=== PATIENT | female | born 1960 | race Caucasian/White ===

== ENCOUNTER 2022-02-24 14:45 | Emergency (ER) | payer OTHER, SELFPAY ==
[2022-02-24 15:22] VITALS: BP 149/79; PULSE 73; RESP 20; TEMP 36.6; O2SAT 99; BMI 33.8
--- NOTE | 2022-02-24 15:40 | CRLHL7_ITS ---
For Patients: As a result of the Century Cures Act, medical imaging exams and procedure reports are released immediately into your electronic medical record. You may view this report before your referring provider. If you have questions, please contact your health care provider. INDICATION: Cough and shortness of breath. TECHNIQUE: Chest 1 views. COMPARISON: None. FINDINGS: Cardiovasculature and mediastinum: Heart size and vasculature are normal in caliber and appearance. Lungs and pleural spaces: Lungs are clear. No sign of infiltrate or mass. No sign of pleural effusion. No pneumothorax. Bones and soft tissues: No significant findings. IMPRESSION: No acute or significant findings. Dictated by Denys Matthews MD @ 02/24/2022 5:45:44 PM (Electronically Signed)
[2022-02-24 16:52] LABS: PCR FLU A Negative PCR FLU A (Negative); PCR FLU B Negative PCR FLU B (Negative); PCR RSV Negative PCR RSV (Negative)
--- NOTE | 2022-02-24 17:31 | ED.GENADULT ---
HPI - General Adult General Date Seen: 02/24/22 Chief complaint: Cough Stated complaint: Spitting up green stuff and dizzy Time Seen by Provider: 02/24/22 17:03 Source: patient History of Present Illness HPI narrative: Patient is a 61-year-old coming in due to ongoing cough since . She says she has had some diarrhea, fatigue, weakness. She says she is coughing up green chunks, occasionally with blood. She says she was not sure whether not she might have bronchitis or need an antibiotic. She has had a negative COVID test at home. She has felt dizzy at times. She has not felt significantly short of breath and has not had chest pain. She says she has run temperatures in the 100-101 range over the past several days but has not had a fever today. She also says that her ears are bothering her. She has had fullness and ear pain. She also says that she has been having pain in her kidney on and off for the past couple of weeks on the left, and she did not want to make the long drive to her regular clinic in [place] as the roads were snowy, so she thought as long as she was here she would get a UA done as well. She has not been having dysuria, frequency or urgency. She has underlying asthma and has inhalers. She does not currently have prednisone. Related Data Previous Rx's Medication Instructions Recorded prednisone 20 mg tablet 20 mg PO BID #10 tabs 02/24/22 prednisone 20 mg tablet See Rx Instructions .Route 02/24/22 .COMPLEX #18 tabs Allergies Allergy/AdvReac Type Severity Reaction Status Date / Time cats Allergy Uncoded 02/24/22 15:22 Review of Systems Status of ROS: Reports: 10 or more systems reviewed and unremarkable except as noted in History and below [facility] Social History Smoking Status: Never smoker Do you use any of these nicotine containing products: None Second hand tobacco smoke exposure: No How often do you have a drink containing alcohol: monthly or less How many standard drinks containing alcohol do you have on a typical day: 1 or 2 How often do you have six or more drinks on one occasion: Never AUDIT-C Alcohol total score: 1 Non-prescribed substance use: denies use service: No Exam Narrative: Exam Narrative: Vital signs as noted above. In general, an alert, well-appearing patient. Head: Normocephalic, atraumatic. Eyes: Pupils are equal reactive. Extraocular movements are full. Conjunctivae are normal. ENT: Mucous membranes are moist. Throat is normal. Neck: Supple without lymphadenopathy. Heart: Regular rate and rhythm. No murmur or rub. Lungs: Clear bilaterally. No increased work of breathing, crackles or wheezes. Abdomen: Soft and nontender. No organomegaly. Extremities: Well perfused. No edema. No calf tenderness. Pulses intact. Neurologic: Patient is alert and oriented to person and place. Speech is fluent. Face is symmetric. Moves all extremities equally. Affect: Normal. Skin: Warm and dry. Well perfused. Const: Vital Signs, click to edit/add: Vital Signs - 24 hr 02/24/22 15:22 02/24/22 19:27 Temperature 97.8 F 97.8 F Pulse Rate [Pulse Oximeter] 73 73 Respiratory Rate 20 20 Blood Pressure [Ri ght Forearm] 149/79 H 149/79 H Pulse Oximetry 99 Oxygen Delivery Me thod Room Air Documenting provider has reviewed patient's vital signs: yes Course Course Hospital Course: Overall, I do not find anything on exam to suggest significant illness. Lungs are clear, without any findings to suggest pneumonia or respiratory distress. I did do a chest x-ray which by my review does not show any evidence of pneumonia, pneumothorax, pulmonary edema, pleural effusion or other significant abnormality. Final radiology report is pending at this time. I have added on a urinalysis at her request. Her strep, COVID, RSV, influenza are all negative. She is afebrile here, O2 sats are normal. Final radiology report is negative for her chest x-ray. Her labs are all reassuring, white blood cell count is 6.7, normal diff. Metabolic panel is normal, creatinine is 0.7. LFTs are normal, CRP is normal. Urinalysis showed 0-2 red cells and 2-5 white cells. I have reassured her that her lab work is all reassuring as well, would recommend treatment for bronchitis by adding some prednisone. She says that she prefers to do a taper rather than of 5 day course because with a 5 day course she gets all sorts of side effects. She remains concerned about the ?squeezing sensation that she is having in her kidney, and I have recommended that she follow up with her primary doctor regarding that. She does feel better knowing that her kidney function is normal and the urinalysis is unremarkable. Follow-up with primary care for recheck in the next week if not improving. Vital Signs Vital signs: Initial Vital Signs Temperature 97.8 F 02/24/22 15:22 Temperature Source Temporal Artery Scan 02/24/22 15:22 Pulse Rate 73 02/24/22 15:22 Pulse Rhythm 02/24/22 15:22 Respiratory Rate 20 02/24/22 15:22 Blood Pressure 149/79 H 02/24/22 15:22 Blood Pressure Mean 102 02/24/22 15:22 Pulse Oximetry 99 02/24/22 15:22 Oxygen Delivery Method 02/24/22 15:22 Vital Signs Temperature 97.8 F 02/24/22 15:22 Pulse Rate 73 02/24/22 15:22 Respiratory Rate 20 02/24/22 15:22 Blood Pressure 149/79 H 02/24/22 15:22 Pulse Oximetry 99 02/24/22 15:22 Oxygen Delivery Method 02/24/22 15:22 Temperature 97.8 F 02/24/22 19:27 Pulse Rate 73 02/24/22 19:27 Respiratory Rate 20 02/24/22 19:27 Blood Pressure 149/79 H 02/24/22 19:27 Pulse Oximetry 99 02/24/22 15:22 Oxygen Delivery Method 02/24/22 15:22 Medical Decision Making Lab Data Labs: Lab Results 02/24/22 02/24/22 02/24/22 Range/Units 15:21 15:30 17:40 WBC (4.50-11.00) K/uL RBC (4.00-5.20) m/uL Hgb (12.0-16.0) gm/dL Hct (33.0-51.0) % MCV (80-100) fL MCH (26-34) pg MCHC (32-36) gm/dL RDW Coeff of Gilberto (11.5-15.5) % Plt Count (140-440) K/uL Neut % (Auto) (42.0-72.0) % Lymph % (Auto) (20-44) % [place] % (Auto) (0.0-11.0) % Eos % (Auto) (0.0-7.0) % Baso % (Auto) (0.0-3.0) % Neut # (Auto) (1.7-7.0) K/uL Lymph # (Auto) (0.90-2.90) K/uL [place] # (Auto) (0.00-0.90) K/UL Eos # (Auto) (0.00-0.50) K/uL Baso # (Auto) (0.00-0.30) K/uL Sodium (135-149) mmol/L Potassium (3.6-5.1) mmol/L Chloride (96-114) mmol/L Carbon Dioxide (20-32) mmol/L BUN (7-30) mg/dL Creatinine (0.5-1.5) mg/dL Estimated Creat Clear Estimated GFR ml/min Glucose (60-115) mg/dL Lactate (0.5-1.9) mmol/L Calcium (8.4-10.6) mg/dL Total Bilirubin (0.1-1.5) mg/dL Direct Bilirubin (0.0-0.5) mg/dL AST (12-35) U/L ALT (4-35) U/L Alkaline Phosphatase (40-150) U/L C-Reactive Protein (0.5-1.0) mg/dL Total Protein (6.0-8.3) g/dL Albumin (3.3-5.0) g/dL Urine Color Yellow (Yellow) Urine Appearance Clear (Clear) Urine pH 5.5 (5.0-8.5) Ur Specific [place] 1.025 (1.000-1.030) Urine Protein Negative (Negative) Urine Glucose (UA) Negative (Negative) Urine Ketones Negative (Negative) Urine Blood Negative (Negative) Urine Nitrite Negative (Negative) Urine Bilirubin Negative (Negative) Urine Urobilinogen 0.2 (0.2-1.0) Ur Leukocyte Esterase Trace A (Negative) Urine RBC 0-2 (0-2) Urine WBC 2-5 (0-5) Ur Squamous Epith Cells None (None-Few) Urine Bacteria Few A (None) SARS-CoV-2 (PCR) Negative SARS-CoV-2 (Negative) Influenza Type A (PCR) Negative PCR FLU A (Negative) Influenza Type B (PCR) Negative PCR FLU B (Negative) RSV (PCR) Negative PCR RSV (Negative) Group A Strep DNA NOT DETECTED (Not Detectd) 02/24/22 02/24/22 02/24/22 Range/Units 17:52 17:52 17:52 WBC 6.71 (4.50-11.00) K/uL RBC 4.77 (4.00-5.20) m/uL Hgb 13.6 (12.0-16.0) gm/dL Hct 41.0 (33.0-51.0) % MCV 86 (80-100) fL MCH 29 (26-34) pg MCHC 33 (32-36) gm/dL RDW Coeff of Gilberto 12.6 (11.5-15.5) % Plt Count 200 (140-440) K/uL Neut % (Auto) 61.4 (42.0-72.0) % Lymph % (Auto) 29.5 (20-44) % [place] % (Auto) 6.4 (0.0-11.0) % Eos % (Auto) 2.2 (0.0-7.0) % Baso % (Auto) 0.4 (0.0-3.0) % Neut # (Auto) 4.11 (1.7-7.0) K/uL Lymph # (Auto) 1.98 (0.90-2.90) K/uL [place] # (Auto) 0.40 (0.00-0.90) K/UL Eos # (Auto) 0.15 (0.00-0.50) K/uL Baso # (Auto) 0.03 (0.00-0.30) K/uL Sodium 141 (135-149) mmol/L Potassium 4.3 (3.6-5.1) mmol/L Chloride 109 (96-114) mmol/L Carbon Dioxide 26 (20-32) mmol/L BUN 12 (7-30) mg/dL Creatinine 0.7 (0.5-1.5) mg/dL Estimated Creat Clear 53.16 Estimated GFR 98 ml/min Glucose 89 (60-115) mg/dL Lactate 0.8 (0.5-1.9) mmol/L Calcium 9.0 (8.4-10.6) mg/dL Total Bilirubin 0.5 (0.1-1.5) mg/dL Direct Bilirubin 0.2 (0.0-0.5) mg/dL AST 23 (12-35) U/L ALT 17 (4-35) U/L Alkaline Phosphatase 106 (40-150) U/L C-Reactive Protein 0.9 (0.5-1.0) mg/dL Total Protein 7.0 (6.0-8.3) g/dL Albumin 4.3 (3.3-5.0) g/dL Urine Color (Yellow) Urine Appearance (Clear) Urine pH (5.0-8.5) Ur Specific [place] (1.000-1.030) Urine Protein (Negative) Urine Glucose (UA) (Negative) Urine Ketones (Negative) Urine Blood (Negative) Urine Nitrite (Negative) Urine Bilirubin (Negative) Urine Urobilinogen (0.2-1.0) Ur Leukocyte Esterase (Negative) Urine RBC (0-2) Urine WBC (0-5) Ur Squamous Epith Cells (None-Few) Urine Bacteria (None) SARS-CoV-2 (PCR) (Negative) Influenza Type A (PCR) (Negative) Influenza Type B (PCR) (Negative) RSV (PCR) (Negative) Group A Strep DNA (Not Detectd) Discharge Plan Discharge Clinical Impression: Bronchitis Patient Disposition: Home, Self-Care Condition: Stable Instructions: Acute Bronchitis (ED) Additional Instructions: Prednisone as prescribed. Urinalysis looks normal. Your lab work is all reassuring, I do not see any evidence of a serious bacterial infection. Continue with your inhalers. Follow up with you primary doctor if you are not improving over the next week or so. Prescriptions: New prednisone 20 mg tablet 20 mg PO BID Qty: 10 0RF prednisone 20 mg tablet See Rx Instructions .ROUTE .COMPLEX Qty: 18 0RF Rx Instructions: Three tablets daily for 3 days then 2 tablets daily for 3 days then 1 tablet daily for 3 days Stand Alone Forms: [employer] Info Instructions
[2022-02-24 17:54] LABS: Appearance Urine Clear (Clear); Bilirubin Urine Negative (Negative); Blood Urine Negative (Negative); Color Urine Yellow (Yellow); Glucose Urine Negative (Negative); Ketones Urine Negative (Negative); Leukocyte Esterase Urine Trace (Negative); Nitrite Urine Negative (Negative); Protein Urine Negative (Negative); Specific Gravity Urine 1.025 (1.000-1.030); Urobilinogen Urine 0.2 (0.2-1.0); pH Urine 5.5 (5.0-8.5)
[2022-02-24 17:59] LABS: Basophils Absolute Auto 0.03 K/uL (0.00-0.30); Basophils Percent Auto 0.4 % (0.0-3.0); Eosinophils Absolute Auto 0.15 K/uL (0.00-0.50); Eosinophils Percent Auto 2.2 % (0.0-7.0); Hemoglobin* 13.6 gm/dL (12.0-16.0); Immature Granulocytes Abs Auto 0.01 K/uL (0.00-0.30); Immature Granulocytes Pct Auto 0.1 %; Lactate* 0.8 mmol/L (0.5-1.9); Lymphocytes Absolute Auto 1.98 K/uL (0.90-2.90); Lymphocytes Percent Auto 29.5 % (20-44); Mean Corpuscular HGB Conc 33 gm/dL (32-36); Mean Corpuscular Hemoglobin 29 pg (26-34); Mean Corpuscular Volume 86 fL (80-100); Monocytes Percent Auto 6.4 % (0.0-11.0); Neutrophils Absolute Auto 4.11 K/uL (1.7-7.0); Neutrophils Percent Auto 61.4 % (42.0-72.0); Platelet Count* 200 K/uL (140-440); RDW Coefficient of Variation % 12.6 % (11.5-15.5); Red Blood Count 4.77 m/uL (4.00-5.20); Slide Review Reflex No; White Blood Count* 6.71 K/uL (4.50-11.00)
[2022-02-24 18:19] LABS: Albumin* 4.3 g/dL (3.3-5.0); Chloride* 109 mmol/L (96-114); Sodium* 141 mmol/L (135-149)
[2022-02-24 18:20] LABS: Potassium* 4.3 mmol/L (3.6-5.1)
[2022-02-24 18:21] LABS: Creatinine* 0.7 mg/dL (0.5-1.5); Est. Creatinine Clearance* 53.16; Estimated Glomerular Filt Rate 98 ml/min
[2022-02-24 18:22] LABS: Alanine Aminotransferase* 17 U/L (4-35); Alkaline Phosphatase* 106 U/L (40-150); Aspartate Amino Transferase* 23 U/L (12-35); Bilirubin Direct* 0.2 mg/dL (0.0-0.5); Bilirubin Total* 0.5 mg/dL (0.1-1.5); Blood Urea Nitrogen* 12 mg/dL (7-30); Carbon Dioxide* 26 mmol/L (20-32); Glucose* 89 mg/dL (60-115)
[2022-02-24 18:25] LABS: C Reactive Protein* 0.9 mg/dL (0.5-1.0)
[2022-02-24 18:53] LABS: Bacteria Urine Few; RBC Urine 0-2 (0-2)
[2022-02-24 19:01] LABS: SARS PCR* Negative SARS-CoV-2 (Negative)
[2022-02-24 19:15] LABS: Strep A DNA Probe* NOT DETECTED (Not Detectd)
[2022-02-24 19:27] VITALS: BP 149/79; PULSE 73; RESP 20; TEMP 36.6
== END 2022-02-24 19:27 | disposition home or self-care (01) ==
PROVIDERS: Emergency Provider Emergency Medicine
DX: J40 Bronchitis, not specified as acute or chronic (principal)
CPT/HCPCS: 36415; 71045; 80048; 80076; 81001; 83605; 85025; 86140; 87086; 87502; 87634; 87635; 87651; 99283; 99284

== ENCOUNTER 2023-11-14 16:11 | Emergency (ER) | payer OTHER, SELFPAY ==
[2023-11-14 16:28] VITALS: BP 179/99; PULSE 95; RESP 18; TEMP 37.4; O2SAT 97; BMI 31.1
--- NOTE | 2023-11-14 16:37 | CRLHL7_ITS ---
For Patients: As a result of the Cures Act, medical imaging exams and procedure reports are released immediately into your electronic medical record. You may view this report before your referring provider. If you have questions, please contact your health care provider. INDICATION: : COUGH, COVID COMPARISON: Chest radiograph on February 24, 2022 TECHNIQUE: One view(s) of the chest FINDINGS: The cardiomediastinal silhouette and pulmonary vasculature are unremarkable. There is no focal airspace consolidation, pleural effusion, or pneumothorax. No displaced fractures. IMPRESSION: No acute cardiopulmonary process. Dictated by Milton Granda MD @ 11/14/2023 6:16:37 PM (Electronically Signed)
--- NOTE | 2023-11-14 17:17 | ED_ITS ---
HPI - General Adult General Date Seen: 11/14/23 Chief complaint: Cough Stated complaint: COVID+ Time Seen by Provider: 11/14/23 16:31 Source: patient and RN notes reviewed Mode of arrival: ambulatory Limitations: no limitations History of Present Illness HPI narrative: Patient is a 62-year-old woman who notes underlying asthma, mild intermittent, COVID positive as of a couple of days ago with ongoing cough and congestion and now right ear pain. She says at night she coughs up green phlegm. She is using her inhaler just at night. She has not had significant shortness of breath otherwise. She says she called her doctor down at [place] and they said to go to her nearest ER to be checked out. She does not smoke or drink. No other substance use. No other significant medical history. Related Data Previous Rx's ?Medication ?Instructions ?Recorded prednisone 20 mg tablet 20 mg PO BID #10 tabs 02/24/22 prednisone 20 mg tablet See Rx Instructions .Route 02/24/22 .COMPLEX #18 tabs amoxicillin 875 mg tablet 875 mg PO BID #20 tabs 11/14/23 prednisone 20 mg tablet 20 mg PO BID #10 tabs 11/14/23 Allergies Allergy/AdvReac Type Severity Reaction Status Date / Time cats Allergy Uncoded 02/24/22 15:22 Review of Systems Status of ROS: Reports: 6 or more systems reviewed and unremarkable except as noted in History and below [facility] Social History Smoking Status: Never smoker Do you use any of these nicotine containing products: None Second hand tobacco smoke exposure: No How often do you have a drink containing alcohol: monthly or less How many standard drinks containing alcohol do you have on a typical day: 1 or 2 How often do you have six or more drinks on one occasion: Never AUDIT-C Alcohol total score: 1 Non-prescribed substance use: denies use service: No Exam Narrative: Exam Narrative: Vital signs as noted above. In general, an alert, well-appearing patient. Breathing easily. Head: Normocephalic, atraumatic. Eyes: Pupils are equal reactive. Extraocular movements are full. Conjunctivae are normal. Left TM is normal. Right is erythematous and dull on the upper 2/3. ENT: Mucous membranes are moist. Throat is normal. Neck: Supple without lymphadenopathy. Heart: Regular rate and rhythm. No murmur or rub. Lungs: Clear bilaterally. No increased work of breathing, crackles or wheezes. Abdomen: Soft and nontender. No organomegaly. Extremities: Well perfused. No edema. No calf tenderness. Pulses intact. Neurologic: Patient is alert and oriented to person and place. Speech is fluent. Face is symmetric. Moves all extremities equally. Affect: Normal. Skin: Warm and dry. Well perfused. Const: Vital Signs, click to edit/add: Vital Signs - 24 hr 11/14/23 16:28 Temperature 99.3 F Pulse Rate [Right Pulse Oximeter] 95 Respiratory Rate 18 Blood Pressure [17 ] 179/99 H Pulse Oximetry 97 Oxygen Delivery Me thod Room Air Documenting provider has reviewed patient's vital signs: yes Course Course ED Course: Discussed with her that she does have evidence of an ear infection in the right ear. Discussed that this is likely viral, would recommend pain control with ibuprofen or Tylenol for the next day or 2, if not improving or if she feels she is getting significantly worse over the next 24 hours, I did prescribe amoxicillin for her. I do not hear significant bronchospasm. Her O2 sats are normal. I did do a chest x-ray and by my review this is negative for infiltrate. Waiting on final radiology review. Would recommend continued use of nebs as needed, and I prescribed prednisone for her as well. Return any time for significant worsening respiratory symptoms or other new concerns. See primary doctor if not improving over the next 7-10 days. Final radiology read as follows:Patient: MARJORIE OSULLIVAN Facility: [facility] Site . Site : [id number] Study: XRay-Chest PORTABLE-11/14/2023 5:14:31 PM Ordering Physician: Lilly Bojorquez Final Report: INDICATION: : COUGH, COVID COMPARISON: Chest radiograph on February 24, 2022 TECHNIQUE: One view(s) of the chest FINDINGS: The cardiomediastinal silhouette and pulmonary vasculature are unremarkable. There is no focal airspace consolidation, pleural effusion, or pneumothorax. No displaced fractures. IMPRESSION: No acute cardiopulmonary process. Dictated by Milton Granda MD @ 11/14/2023 6:16:37 PM Plan as above. Vital Signs Vital signs: Initial Vital Signs Temperature 99.3 F 11/14/23 16:28 Temperature Source Temporal Artery Scan 11/14/23 16:28 Pulse Rate 95 11/14/23 16:28 Respiratory Rate 18 11/14/23 16:28 Blood Pressure 179/99 H 11/14/23 16:28 Blood Pressure Mean 125 H 11/14/23 16:28 Blood Pressure Position Sitting 11/14/23 16:28 Pulse Oximetry 97 11/14/23 16:28 Oxygen Delivery Method Room Air 11/14/23 16:28 Vital Signs Temperature 99.3 F 11/14/23 16:28 Pulse Rate 95 11/14/23 16:28 Respiratory Rate 18 11/14/23 16:28 Blood Pressure 179/99 H 11/14/23 16:28 Pulse Oximetry 97 11/14/23 16:28 Oxygen Delivery Method Room Air 11/14/23 16:28 Temperature 99.3 F 11/14/23 16:28 Pulse Rate 95 11/14/23 16:28 Respiratory Rate 18 11/14/23 16:28 Blood Pressure 179/99 H 11/14/23 16:28 Pulse Oximetry 97 11/14/23 16:28 Oxygen Delivery Method Room Air 11/14/23 16:28 Discharge Plan Discharge Clinical Impression: COVID-19, Otitis media, right, Asthma Patient Disposition: Home, Self-Care Condition: Stable Instructions: Ear Infection (ED) Additional Instructions: Your chest x-ray is normal today, there is no evidence of pneumonia on x-ray or exam. You do have an infection in your right ear, most likely this is viral, I would recommend giving this a day or 2 of just treatment with ibuprofen and/or Tylenol for pain. I did send a prescription for you for amoxicillin if you are not getting better or are getting worse over the next couple days. I have also prescribed prednisone for you to take. You can continue to use your inhalers at home as needed. For significant worsening respiratory symptoms or other new concerns, return to the ER at any time. See your primary doctor as needed for persistent problems. Prescriptions: New prednisone 20 mg tablet 20 mg PO BID Qty: 10 0RF amoxicillin 875 mg tablet 875 mg PO BID Qty: 20 0RF No Action prednisone 20 mg tablet 20 mg PO BID Qty: 10 0RF prednisone 20 mg tablet See Rx Instructions .ROUTE .COMPLEX Qty: 18 0RF Rx Instructions: Three tablets daily for 3 days then 2 tablets daily for 3 days then 1 tablet daily for 3 days Follow Up/Referrals: Provider,Not a Local [Primary Care Provider] - Stand Alone Forms: [employer] Info Instructions
--- OUTSIDE RECORDS SUMMARY | 2023-11-14 17:41 | XMS_ITS | Encounter Summary ---
Author Organization [facility] Address [address] [place] [id number] Care Team Providers Care Edge Cutting Machine Operator Name Role Phone Silva Silva APRN, C.N.P., D.N.P. Primary Ca re Provider Reason for Referral * Outpatient (Routine) - Authorized Specialty Diagnoses / Procedures Referred By Zena t Referred To Contact Diagnoses Obesity Body Mass Index 30-39.9 Adult Silva Silva APRN, C.N.P., D.N.P. [address] [place] [address] [facility] Referral ID Status Reason Start Date Expiration Date V isits Requested Visits Authorized [id number] Authorized 10/05/2023 04/05/2025 1 1 * Outpatient (Routine) - Authorized Specialty Diagnoses / Procedures Referred By Zena bedolla Referred To Contact [facility] Diagnoses Obesity Body Mass Index 30-39.9 Adult Silva Silva APRN C.N.P., D.N.P. [address] [place] [address] [facility] Region Referral ID Status Reason Start Date Expiration Date V isits Requested Visits Authorized [id number] Authorized 10/05/2023 04/05/2025 1 1 * Medication Prior Authorization - Closed Specialty Diagnoses / Procedures Referred By Zena t Referred To Contact Silva Silva APRN, C.N.PZee, D.N.P. [address] [place] [address] Referral ID Status Reason Start Date Expiration Date Visits Re quested Visits Authorized [id number] Closed 1 1 Reason for Visit * Reason Comments Med Management Wegovy and weight lo ss. No side effects Encounter Details Date Type Department Care Team (Late st Contact Info) Description 10/05/2023 8:00 AM CDT Telemedicine Department of Internal Medicine in [place], [place] [address] [place] [address] Silva Silva APRN, C.N.PZee, D.N.P. [address] [place] [phone] Obesity Body Mass Index 30-39.9 Adult (Primary Dx); Surgery Bariatric Status Post; Depression Major Recurrent Partial Remission (HCC); Impaired Fasting Glucose; Deficiency Vitamin D; Hypercholesterolemia Discharge Disposition: Home or Self Care Social History Tobacco Use Types Packs/Day Years Used Date Smoking Tobacco: Never Passive Smoke Exposure: Never Smokeless Tobacco: Never Tobacco Cessation:Counseling Given: Not Answered Alcohol Use Standard Drinks/Week Comments Yes 0 (1 standard drink = 0.6 oz pur e alcohol) rare [facility] Utilities Answer Date Recorded In the past 12 months has e electric, gas, oil, or water company threatened to shut off services in your home? No 06/06/2023 Humiliation, Afraid, Rape, and Kick questionnair e Answer Date Recorded Within the last year, have y ou been afraid of your partner or ex-partner? No 12/14/2021 Within the last year, have y ou been humiliated or emotionally abused in other ways by your partner or ex-partner? No Within the last year, have y ou been kicked, hit, slapped, or otherwise physically hurt by your partner or ex-partner? No 12/14/2021 Within the last year, have y ou been raped or forced to have any kind of sexual activity by your partner or ex-partner? No 12/14/2021 Social Connection and Isolat ion Panel [NHANES] Answer Date Recorded In a typical week, how many times do you talk on the phone with family, friends, or neighbors? More than three times a week 12/14/2021 How often do you get togethe r with friends or relatives? Once a week 12/14/2021 How often do you attend [facility] or synagogue services? Patient declined 12/14/2021 Do you belong to any clubs o r organizations such as sabianism groups, unions, fraternal or athletic groups, or school groups? Yes 12/14/2021 How often do you attend meet ings of the clubs or organizations you belong to? More than 4 times per year 12/14/2021 Are you , , di vorced, , never , or living with a partner? 12/14/2021 AUDIT-C Answer Date Recorded Q1: How often do you have a drink containing alcohol? Monthly or less 12/14/2021 Q2: How many drinks containi ng alcohol do you have on a typical day when you are drinking? Patient does not drink Q3: How often do you have si x or more drinks on one occasion? Never 12/14/2021 Overall Financial Resource Strain (CARDIA) Answe r Date Recorded How hard is it for you to pa y for the very basics like food, housing, medical care, and heating? Not very hard 12/14/2021 PHQ-2 Answer Date Recorded PHQ-2 Score 0 06/08/2023 [facility] of Occupat ional Health - Occupational Stress Questionnaire Answer Date Recorded Do you feel stress - tense, restless, nervous, or anxious, or unable to sleep at night because your mind is troubled all the time - these days? Only a little 12/14/2021 Exercise Vital Sign Answer Date Recorde d On average, how many days pe r week do you engage in moderate to strenuous exercise (like a brisk walk)? 4 days 06/06/2023 On average, how many minutes do you engage in exercise at this level? 50 min 06/06/2023 Hunger Vital Sign Answer Date Recorded Within the past 12 months, y ou worried that your food would run out before you got the money to buy more. Never true 06/06/19 Within the past 12 months, t he food you bought just didn't last and you didn't have money to get more. Never true 06/06/2023 PRAPARE - Transportation Answer Date Re corded In the past 12 months, has l ack of transportation kept you from medical appointments or from getting medications? No 05/20 In the past 12 months, has l ack of transportation kept you from meetings, work, or from getting things needed for daily living? No 06/06/2023 Nutrition Answer Date Recorded On average, how many serving s of fruits and vegetables do you eat per day (serving size is equal to 1 cup or approximately the size of a tennis ball)? 3-5 06/06/2023 Dental Answer Date Recorded Dental: Regular Dentist Yes 06/06/19 Employment Answer Date Recorded Employment status Retired 06/06/2023 Housing Stability Answer Date Recorded What is your living situation today? I have a [facility] place to live 06/06/2023 Education Answer Date Recorded What is the highest level of school you have completed or the highest degree you have received? Associate degree: occupational, technical, or vocational program 12/05/2021 Sex and Gender Information Value Date Recorded Sex Assigned at Female 06/06/2023 3:51 PM CDT Gender Identity Female 06/06/2023 3:51 PM CDT Sexual Orientation Straight 06/06/2023 3: 51 PM CDT documented as of this encounter Last Filed Vital Signs Vital Sign Reading Time Taken Comments Blood Pressure - - Pulse - - Temperature - - Respiratory Rate - - Oxygen Saturation - - Inhaled Oxygen Concentration - - Weight 88.5 kg (195 lb) 10/05/2023 7:59 AM CDT Height - - Body Mass Index 33.29 06/08/2023 10:09 AM CDT documented in this encounter Progress Notes * Silva Silva APRN, C.N.P., D.N.P. - 10/05/2023 8:00 AM CDT SUBJECTIVE CHIEF COMPLAINT/REASON FOR VISIT Med Management (Wegovy and weight loss. No side effects). HISTORY OF PRESENT ILLNESS Modesta is a very pleasant 62 y.o. female who presents for evaluation of Med Management (Wegovy and weight loss. No side effects). This visit was conducted via video Obesity BMI: Body mass index is 33.29 kg/m??. Weight changes: 195 Starting weight: 218 Diet: sandwich for lunch, Trying to watch carbs. Eating smaller portions. Working on eating more protein. Snacking on high protein snacks. Eating more small frequent meals. Exercise: walking regularly. Barriers to weight loss: None at this time Treatments tried: Wegovy increase to 1 mg on some 08/24/2023 Side effects: None Candidiasis: reports this is resolved Nystatin: using daily. Helping Other treatments: None Depression/anxiety Medications: Vraylar. Doing really well wondering if she needs this medication anymore SOCIAL HISTORY Denies tobacco use. No concern for excessive alcohol use. Lives independently ALLERGIES/CONTRAINDICATIONS Allergies Allergen Reactions Km Inhibitors Other (see comments) Acetaminophen Other (see comments) Cat Dander Itching Cigarette Smoke Other (see comments) Dog Dander Other (see comments) House Dust Other (see comments) Latex Shortness of breath (Reselect Reaction) Mold Other (see comments) Oxycodone Other (see comments) Pollen Extracts Other (see comments) REVIEW OF SYSTEMS REVIEW OF SYSTEMS Pertinent positives as per HPI. Otherwise, comprehensive review of systems performed and negative. OBJECTIVE VITAL SIGNS Wt 88.5 kg BMI 33.29 kg/m?? PHYSICAL EXAMINATION Constitutional Appearance: Normal appearance. HENT Head: Normocephalic and atraumatic. Pulmonary Effort: Pulmonary effort is normal. Neurological Mental Status: She is alert and oriented to person, place, and time. Mental status is at baseline. Psychiatric Mood and Affect: Mood normal. Speech: Speech normal. Behavior: Behavior normal. Thought Content: Thought content normal. Cognition and Memory: Cognition normal. ASSESSMENT / PLAN #1 Obesity Body Mass Index 30-39.9 Adult #2 Surgery Bariatric Status Post Reports ongoing weight loss with Wegovy which she is tolerating well without any side effects. Continues to lose weight of the 1 mg dose so I did recommend we continue with this. Plan to follow up in3 months. She will let me know sooner if weight plateaus and she would like to try increasing her dose to 1.7 mg. Plan to update labs including bariatric labs in 3 months. - [facility] office visit (clinic); Future; Expected date: 01/05/2024 - Primary Care nurse visit (clinic) - [facility]; BP check, Weight check (adult); BP check only (HISTORICAL ARCHEOLOGIST); Future; Expected date: 10/05/2023 - semaglutide (Wegovy) 1 mg/0.5 mL pen injector injection; Inject 1 mg under the skin once a week.,Starting Sun10/05/2023, Normal - Comprehensive Metabolic Panel; Future; Expected date: 01/05/2024 - CBC with Differential, Blood; Future; Expected date: 01/05/2024 - Vitamin B12 Assay; Future; Expected date: 01/05/2024 #3 Depression Major Recurrent Partial Remission (HCC) She feels her mood has been very good over the last 6-12 months and she is wondering if she still needs to be on current dose of Vraylar as she has been doing very well. Not currently following with Psychiatry. I have suggested we try reducing her dose to 1.5 mg and see how she does with this. If she has any recurrent symptoms of depression or anxiety she will let me know and she will increase her dose back up to the 3 mg. Recommended continuing with the 1.5 mg dose for at least the next 3 months to see how she does with this. - cariprazine (Vraylar) 1.5 mg capsule; Take 1 capsule (1.5 mg total) by mouth daily., Starting Sun10/05/2023, Normal #4 Impaired Fasting Glucose A1c 4.6 in July of 2022. Has been over a year since last checked. Plan to update again with next set of labs. - Hemoglobin A1c; Future; Expected date: 01/05/2024 #5 Deficiency Vitamin D History of vitamin-D deficiency on supplementation. Plan to update level with next set of labs. - Vitamin D, Immunoassay, Total, Serum; Future; Expected date: 01/05/2024 #6 Hypercholesterolemia Maintained on atorvastatin and tolerating well. Plan to update lipid panel with next set of labs. - Lipid Panel; Future; Expected date: 01/05/2024 Recommended Modesta follow up in 3 months. Follow up sooner for any new or worsening symptoms. Modesta verbalized understanding of the plan of care and was in agreement. All questions were answered today. Total time spent on visit: 21 minutes documented in this encounter Plan of Treatment Upcoming Encounters Date Type Department Care Team (Late st Contact Info) Description 01/07/2024 10:20 AM WHEEL BUFFER Appointment Department of Laboratory Medicine in [address] [phone] Silva Silva APRN, C.N.P., D.N.P. [address] [place] [phone] 01/07/2024 3:00 PM WHEEL BUFFER Telemedicine Department of Internal Medicine in [address] [phone] Silva Silva APRN, C.N.P., D.N.P. [address] [place] [phone] Scheduled Orders Name Type Priority Associated Diagnoses Orde r Schedule Comprehensive Metabolic Panel Lab Routine Surgery Bariatric Status Post Expected: 01/05/2024, Expires: 01/04/2025 CBC with Differential, Blood Lab Routine Surgery Bariatric Status Post Expected: 01/05/2024, Expires: 01/04/2025 Vitamin B12 Assay Lab Routine Surgery Bariatric Status Post Expected: 01/05/2024, Expires: 01/04/2025 Vitamin D, Immunoassay, Total, Serum Lab Routine Deficiency Vitamin D Expected: 01/05/2024, Expires: 01/04/2025 Hemoglobin A1c Lab Routine Impaired Fasting Glucose Expected: 01/05/2024, Expires: 01/04/2025 Lipid Panel Lab Routine Hypercholesterolemia Expected: 01/05/2024 (Approximate), Expires: 01/04/2025 Scheduled Referrals Name Type Priority Associated Diagnoses Orde r Schedule [facility] office visit (clinic) Outpatient Referral Routine Obesity Body Mass Index 30-39.9 Adult Expected: 01/05/2024 (Approximate), Expires: 01/04/2025 Primary Care nurse visit (clinic) - [facility]; BP check, Weight check (adult); BP check only (HISTORICAL ARCHEOLOGIST) Outpatient Referral Routine Obesity Body Mass Index 30-39.9 Adult Expected: 10/05/2023, Expires: 01/04/2025 documented as of this encounter Visit Diagnoses Diagnosis Obesity Body Mass Index 30-39.9 Adult- Primary Surgery Bariatric Status Post Depression Major Recurrent Partial Remission (HCC) Impaired Fasting Glucose Deficiency Vitamin D Hypercholesterolemia documented in this encounter Care Teams Edge Cutting Machine Operator Relationship Specialty Start Date End Date Silva Silva APRN, C.N.P., D.N.P. [address] [place] [phone] PCP - General Internal Medicine 08/26/21 documented as of this encounter
--- OUTSIDE RECORDS SUMMARY | 2023-11-14 17:41 | XMS_ITS | Encounter Summary ---
Author Organization [facility] Address [address] [place] [address] Care Team Providers Care Supervisor Ornamental Ironworking Name Role Phone Silva Silva APRN, C.N.P., D.N.P. Primary Ca re Provider Reason for Referral * Outpatient (Routine) - Authorized Specialty Diagnoses / Procedures Referred By Zena bedolla Referred To Contact [facility] Diagnoses Obesity Body Mass Index 30-39.9 Adult Silva Silva APRN C.N.P., D.N.P. [address] [place] [address] [facility] Region Referral ID Status Reason Start Date Expiration Date V isits Requested Visits Authorized [id number] Authorized 08/24/2023 02/22/2025 1 1 Reason for Visit * Reason Comments Follow-up wegovy * Outpatient (Routine) - Closed Specialty Diagnoses / Procedures Referred By Zena bedolla Referred To Contact [facility] Diagnoses Obesity Body Mass Index 30-39.9 Adult Silva Silva APRN C.N.P., D.N.P. [address] [place] [address] [facility] Region Referral ID Status Reason Start Date Expiration Date Visits Re quested Visits Authorized [id number] Closed 07/09/2023 01/07/2025 1 1 Encounter Details Date Type Department Care Team (Anna moon Contact Info) Description 08/24/2023 10:20 AM CDT Telemedicine Department of Internal Medicine in [place], [place] [address] [place] [phone] Silva Silva APRN, C.N.P., D.N.P. [address] [place] [phone] Obesity Body Mass Index 30-39.9 Adult (Primary Dx); Surgery Bariatric Status Post; Candidiasis Intertrigo; Gastroesophageal Reflux Disease; Asthma Moderate Persistent (HCC) Discharge Disposition: Home or Self Care Social History Tobacco Use Types Packs/Day Years Used Date Smoking Tobacco: Never Passive Smoke Exposure: Never Smokeless Tobacco: Never Alcohol Use Standard Drinks/Week Comments Yes 0 (1 standard drink = 0.6 oz pur e alcohol) rare [facility] Utilities Answer Date Recorded In the past 12 months has [employer], gas, oil, or water [employer] threatened to shut off services in your [...] week 12/14/2021 How often do you attend chur ch or rastafari services? Patient declined 12/14/2021 Do you belong to any clubs o r organizations such as anglican groups, unions, fraternal or athletic groups, or [...] Answer Date Recorded PHQ-2 Score 0 06/08/2023 [facility] [place] of Occupat ional Health - Occupational Stress [...] money to buy more. Never true 06/06/19 24 Within the past 12 months, t he [...] living situation today? I have a [facility] place to live 06/06/2023 Education Answer Date [...] - Inhaled Oxygen Concentration - - Weight 92.1 kg (203 lb) 08/24/2023 10:10 AM CDT Height - - Body Mass Index 34.66 06/08/2023 10:09 AM CDT documented in this encounter Progress Notes * Silva Silva, LEANNA, C.N.P., D.N.P. - 08/24/2023 10:20 AM CDT SUBJECTIVE CHIEF COMPLAINT/REASON FOR VISIT Follow-up (debra). HISTORY OF PRESENT ILLNESS Modesta is a very pleasant 62 y.o. female who presents for evaluation of Follow-up (debra). This visit was conducted via video Obesity BMI: Body mass index is 34.66 kg/m??. Starting weight: 217 lbs Weight changes: She has plateaued over the last month. Total weight loss. Has gone from 217 to 203.Goal 175 lb Diet: has gone back to her bariatric diet. Doing protein powder in the morning. Eating small meals every 3 hours. Focusing on protein. Exercise: Walking 2-3 miles per day. Doing some weight training Comorbidities: Has been having issues with skin infections under her pannus Using baby powder and paper towels. Treatments tried: Started Wegovy 06/08/2023. Dose increase to 0.5 mg on 07/09/2023. She has used some nystatin over the counter. Using a topical Deoderant. Side effects:None Asthma: Denies any wheezing and coughing. Using flonase. Feels like weight loss has helped this SOCIAL HISTORY Denies tobacco use. No concern [...] performed and negative. OBJECTIVE VITAL SIGNS Wt 92.1 kg BMI 34.66 kg/m?? PHYSICAL EXAMINATION Constitutional Appearance: Normal appearance. [...] 30-39.9 Adult #2 Surgery Bariatric Status Post She is lost about 14 lb on the Wegovy but feels like weight loss has currently plateaued. Tolerating current dose without any side effects. Recommended increasing to 1 mg dose to see if this aids in weight loss further. She will let me know if she has any side effects with this. Plan to follow up in a month and titrate dose up further if tolerating well. - [facility] office visit (clinic) - [facility] office visit (clinic); Future; Expected date: 09/24/2023 - semaglutide (Wegovy) 1 mg/0.5 mL pen injector injection; Inject 1 mg under the skin every 7 (seven) days., Starting Sun08/24/2023, Normal #3 Candidiasis Intertrigo Reports she has been having quite a few skin infections along the pannus. Has quite a bit of excessskin since her bariatric surgery and weight loss. She has been using baby powder [id number]. Recommended we try treating with nystatin powder. Ultimately may benefit from consultation for potential penectomy once she is at goal weight. - nystatin (Nystop) 100,000 unit/gram powder; Apply 1 Application topically 3 (three) times a day. Apply to skin folds., Starting Sun08/24/2023, Normal #4 Gastroesophageal Reflux Disease Denies any worsening reflux symptoms with the Wegovy. She will let me know if this changes. #5 Asthma Moderate Persistent (HCC) Reports asthma has been very well controlled feels like weight loss have been helping with this. Recommended Modesta follow up in 1 month. Follow up sooner for any new or worsening symptoms. Modesta verbalized understanding of the plan of care and was in agreement. All questions were answered today. Total time spent on visit: 22 minutes documented in this encounter Plan of Treatment Upcoming Encounters Date Type Department Care Team (Late st Contact Info) Description 01/07/2024 10:20 AM CONSTRUCTION PERSON Appointment Department of Laboratory Medicine in [address] [phone] Silva Silva APRN, C.N.P., D.N.P. [address] [place] [phone] 01/07/2024 3:00 PM CONSTRUCTION PERSON Telemedicine Department of Internal Medicine in [address] [phone] Silva Silva APRN, C.N.P., D.N.P. [address] [place] [phone] Scheduled Referrals Name Type Priority Associated Diagnoses Orde r Schedule Community Internal Medicine office visit (clinic) Outpatient Referral Routine Obesity Body Mass Index 30-39.9 Adult Expected: 09/24/2023 (Approximate), Expires: 11/23/2024 documented as of this encounter Visit Diagnoses Diagnosis Obesity Body Mass Index 30-39.9 Adult- Primary Surgery Bariatric Status Post Candidiasis Intertrigo Gastroesophageal Reflux Disease Asthma Moderate Persistent (HCC) documented in this encounter Care Teams Supervisor Ornamental Ironworking Relationship Specialty Start Date End Date Silva Silva APRN, C.N.P., D.N.P. [address] [place] [phone] PCP - General Internal Medicine 08/26/21 documented as of this encounter
--- OUTSIDE RECORDS SUMMARY | 2023-11-14 17:41 | XMS_ITS | Encounter Summary ---
Author Organization [facility] Address [address] [place] [id number] Care Team Providers Care Telemetry Rn Name Role Phone Silva Silva APRN, C.N.P., D.N.P. Primary Ca re Provider Reason for Visit * Reason Onset Date Comments Cough 11/14/2023 Dizziness 11/14/2023 Fatigue 11/14/2023 Encounter Details Date Type Department Care Team (Late st Contact Info) Description 11/14/2023 Nurse Triage Department of Internal Medicine in [address] [phone] Vijaya Preciado, R.NZee [address] [place] [phone] Cough; Dizziness; Fatigue Social History Tobacco Use Types Packs/Day Years Used Date Smoking Tobacco: Never Passive Smoke Exposure: Never Smokeless Tobacco: Never Alcohol Use Standard Drinks/Week Comments Yes 0 (1 standard drink = 0.6 oz pur e alcohol) rare [facility] Utilities Answer Date Recorded In the [...] week 12/14/2021 How often do you attend [facility] or anabaptism services? Patient declined 12/14/2021 Do you belong to any clubs o r organizations such as congregational groups, unions, fraternal or athletic groups, or [...] Answer Date Recorded PHQ-2 Score 0 06/08/2023 [facility] - Occupational Stress [...] your living situation today? I have a [facility] place to live 06/06/2023 Education Answer Date [...] PM CDT documented as of this encounter Miscellaneous Notes * Telephone Encounter - Vijaya Preciado, RZeeN. - 11/14/2023 12:14 PM CDT Chief Complaint / Reason for Call Patient is a 62 y.o. female calling regarding Cough, Dizziness, and Fatigue. Assessment Concern: Patient states she has COVID and has been coughing up a lot of green and brown phlegm the size of her thumb fingernail. COVID positive test on 11/12/23. No energy and fatigue. Right ear pain that she rates a 5/10 plugged and pressure. Wheezing present last night. Headache that patient rates a 6/10. Dizziness present. Lost weight and not drinking fluids well. Present for: Symptoms started on 11/08/23 with a bad sore throat Home cares tried: Tylenol Calling to request: Advice The recommended disposition is Go to ED Now (or PCP Triage). Care Advice Patient/Caregiver understands and will follow care advice?: Yes, able to teach back Dizziness - [id number] Nurse Vijaya Lehman Nov 14, 2023 12:31 PM Care Advice GO TO ED NOW (OR PCP TRIAGE): DRIVING: * Another adult should drive. * Patient should not delay going to the emergency department. * If immediate transportation is not available via car, rideshare (e.g., Lyft, Uber), or taxi, thenthe patient should be instructed to call [id number]. Reason for Disposition Severe headache (e.g., excruciating) (Exception: Similar to previous migraines.) Protocols used: Dizziness - [id number] documented in this encounter Plan of Treatment Upcoming Encounters Date Type Department Care Team (Late st Contact Info) Description 01/07/2024 10:20 AM [employer]KE [employer] S[employer]ER OPERATOR Appointment Department of Laboratory Medicine in [address] [phone] Silva Silva APRN, C.N.P., D.N.P. [address] [place] [phone] 01/07/2024 3:00 PM [employer] OPERATOR Telemedicine Department of Internal Medicine in [address] [phone] Silva Silva APRN, C.N.P., D.N.P. [address] [place] [phone] documented as of this encounter Visit Diagnoses Not on filedocumented in this encounter Additional Health Concerns Infection Onset Date Last Indicated Resolved Time COVID19 11/12/2023 11/12/2023 documented as of this encounter Care Teams Telemetry Rn Relationship Specialty Start Date End Date Silva Silva APRN, C.N.P., D.N.P. [address] [place] [phone] PCP - General Internal Medicine 08/26/21 documented as of this encounter
--- OUTSIDE RECORDS SUMMARY | 2023-11-14 17:41 | XMS_ITS | Clinical Summary ---
Author Organization [facility] Address [address] [place] [address] Care Team Providers Care Pack Out Operator Name Role Phone Silva Silva APRN, C.N.P., D.N.P. Primary Ca re Provider Source Comments Patient records contain information from all sites at [facility]. For routine questions regarding patient records, call [phone] during business hours, M-F 8:00 AM - 5:00 PM Central Time. Record requests for emergency care only can be directed to [phone] at any time.[facility] Allergies Active Allergy Reactions Criticality Noted Date Comments Km Inhibitors Other (see comments) 05/08/2012 Acetaminophen Other (see comments) 05/17/2011 Cat Dander Itching 09/02/2021 Cigarette Smoke Other (see comments) 12/09/2021 Dog Dander Other (see comments) 12/09/2021 House Dust Other (see comments) 12/09/2021 Latex Shortness of breath (Reselect Reaction) 09/02/2021 Mold Other (see comments) 12/09/2021 Oxycodone Other (see comments) 05/17/2011 Pollen Extracts Other (see comments) 12/09/2021 Medications Medication Sig Dispensed Refills Start Date End Date Status pediatric multivitamin-iron- minerals (Flintstones Complete) chewable tablet Chew 2 tablets daily. Active cholecalciferol (VITAMIN D3) 250 mcg (10,000 Unit) capsule Take 250 mcg by mouth daily. Taking 2 tabs daily Active cyanocobalamin, vitamin B-12, 3,000 mcg capsule Take 2 capsules by mouth daily. Active krill/om-3/dha/epa /phospho/ast (OMEGA-3 KRILL OIL ORAL) Take 1 Squirt by mouth daily. Active propylene glycol/peg 400 (SYSTANE ULTRA OPHT) Administer into affected eye(s) as needed. Active UNABLE TO FIND Take 1 each by mouth daily. Keep Greens (Nutrikey) Active UNABLE TO FIND Take 1 each by mouth daily. Express Instant Coffee Active UNABLE TO FIND Take 1 each by mouth daily. Premier Protein 11 oz Active UNABLE TO FIND Take 1 each by mouth daily. Iso 100 protein powder- takes 1 scoop daily Active albuterol 90 mcg/actuation inhalerIndications :Asthma (HCC) Inhale 2 puffs every 6 (six) hours as needed for wheezing. 18 g 3 12/05/20[address] Active aspirin [address] tablet daily. 01/17/2021 Active ipratropium-albute roL (DUONEB) 0.5-2.5 mg/3 mL nebulizer solution Inhale 3 mL by nebulization 4 (four) times a day as needed for wheezing or shortness of breath. 360 mL 11 12/12/2021 Active fluticasone furoate-vilanteroL (BREO ELLIPTA DISKUS) 200-25 mcg/act inhalerIndications :Asthma (HCC) Inhale 1 puff daily. 180 each 3 12/19/2021 Active estradioL (ESTRACE) 0.1 mg/g (0.01%) vaginal cream Insert 1 gram into vagina at daily at bedtime for two weeks, then at bedtime twice a week thereafter 42.5 g 3 06/29/2022 Active Additional Information Patient not taking.Reported on 10/05/2023 LORazepam (ATIVAN) 0.5 mg tablet TK 1 T PO QD PRN 01/04/2021 Activ e valACYclovir (VALTREX) 1000 mg tabletIndications: Herpes Genitalis Take 1 tablet (1,000 mg total) by mouth 3 (three) times a day. 21 tablet 04/13/2023 Active Additional Information Patient taking differently:1,000 mg oralAs needed, Reported on 06/08/2023 fluticasone propionate (FLONASE) 50 mcg/actuation nasal sprayIndications:D sadeziness Administer 1 spray into each nostril 2 (two) times a day. 16 g 3 06/08/2023 Active pen needle, diabetic (UltiCare Pen Needle) 29 gauge x 1/2 needleIndications: Obesity Body Mass Index 30-39.9 Adult 1 Injection once a week. Use to inject 1-4 times daily as directed. 30 each 06/08/2023 Active pantoprazole (PROTONIX) 40 mg EC tabletIndications: Gastroesophageal Reflux Disease TAKE 1 TABLET(40 MG) BY MOUTH EVERY MORNING BEFORE BREAKFAST 90 tablet 3 06/29/2023 Active atorvastatin (LIPITOR) 40 mg tabletIndications: Hypercholesterolem ia TAKE 1 TABLET(40 MG) BY MOUTH DAILY 90 tablet 3 06/29/2023 Active nystatin (Nystop) 100,000 unit/gram powderIndications: Candidiasis Intertrigo Apply 1 Application topically 3 (three) times a day. Apply to skin folds. 15 g 08/24/2023 Active Additional Information Patient taking differently:1 Application topical3 times daily PRN, Apply to skin folds., Reported on 10/05/2023 acyclovir (Zovirax) 400 mg tablet Take 1 tablet (400 mg total) by mouth 3 (three) times a day. 30 tablet 09/07/2023 Active semaglutide (Wegovy) 1 mg/0.5 mL pen injector injection Inject 1 mg under the skin once a week. 2 mL 3 10/05/2023 Active cariprazine (Vraylar) 1.5 mg capsuleIndications :Depression Major Recurrent Partial Remission (HCC) Take 1 capsule (1.5 mg total) by mouth daily. 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 09/02/2021 Laryngomalacia 09/02/2021 Gastroesophageal Reflux Disease 09/02/2021 Retinal Disorder 09/02/2021 Impaired Fasting Glucose 09/02/2021 Hypercholesterolemia 09/02/2021 Labile Blood Pressure 09/02/2021 Deficiency Vitamin D 01/17/2021 Endarterectomy Carotid Status Post 04/18/2017 Endarterectomy Carotid Status Post 04/17/2017 Asymptomatic Varicose Veins Of Bilateral Lower E xtremities 09/07/2016 Asthma Moderate Persistent 08/02/2015 Overview (06/08/2023): (Problem was migrated from [employer] on 03/21/2017) (Problem was migrated from [employer] on 03/21/2017) Sleep Apnea 02/18/2009 Overview (06/08/2023): (Problem was migrated from [employer] on 03/21/2017) (Problem was migrated from [employer] on 03/21/2017) Resolved Problems Problem Noted Date Diagnosed Date Resolved Date Nausea And Vomiting 03/31/2022 08/24/19 24 Overview (03/31/2022): Added automatically from request for surgery [id number] Pain Epigastric 03/31/2022 08/24/2023 Overview (03/31/2022): Added automatically from request for surgery [id number] Gastroparesis 12/05/2021 03/31/2022 Depressive Disorder 12/05/2021 12/06/19 22 Gallstone 12/05/2021 03/31/2022 Screening Mammogram Average Risk Patient 09/02/2021 09/02/2021 Screening Cancer Colon 09/02/202109/04 Overview (09/02/2021): Added automatically from request for surgery [id number] Bypass Gastric Pema En Y Status Post 08/08/2016 12/05/2021 Asthma 03/28/2012 09/04/2022 Overview (09/04/2022): (Problem was migrated from [employer] on 03/21/2017) Hypertension Essential Primary 05/02/2011 09/04/2022 Overview (09/04/2022): (Problem was migrated from [employer] on 03/21/2017) Diabetes Mellitus Type 2 Without Complication 02/19/20 11 06/08/2023 Overview (06/08/2023): Removal Reason: resolved (Problem was migrated from [employer] on 03/21/2017) (Problem was migrated from [employer] on 03/21/2017) Removal Reason: resolved (Problem was migrated from [employer] on 03/21/2017) Encounters Date Type Department Care Team Description 11/14/2023 Nurse Triage Department of Internal Medicine in [address] [phone] Vijaya Preciado R.N. Cough; Dizziness; Fatigue 10/29/2023 Clinical Communication Department of Internal Medicine [address] [phone] Silva Silva APRN, C.N.P., D.N.P. Med Question (Scripts for insuranace) 10/05/2023 8:00 AM CDT Telemedicine Department of Internal Medicine in [address] [phone] Silva Silva APRN, C.N.P., D.N.P. Obesity Body Mass Index 30-39.9 Adult (Primary Dx); Surgery Bariatric Status Post; Depression Major Recurrent Partial Remission (HCC); Impaired Fasting Glucose; Deficiency Vitamin D; Hypercholesterolemi a Discharge Disposition: Home or Self Care 09/20/2023 Refill Department of Internal Medicine in [address] [phone] Silva Silva APRN, C.N.P., D.N.P. Med Refill 09/06/2023 Refill Department of Internal Medicine in [address] [phone] Silva Silva APRN, C.N.P., D.N.P. Med Refill 09/03/2023 Clinical Communication Department of Internal Medicine in [address] [phone] Silva Silva APRN C.N.PZee, D.N.P. PandaDoc Form ([facility] Verification of OTC Medical Expenses ) 08/24/2023 10:20 AM CDT Telemedicine Department of Internal Medicine in [address] [phone] Silva Silva APRN C.N.PZee, D.N.P. Obesity Body Mass Index 30-39.9 Adult (Primary Dx); Surgery Bariatric Status Post; Candidiasis Intertrigo; Gastroesophageal Reflux Disease; Asthma Moderate Persistent (HCC) Discharge Disposition: Home or Self Care 08/22/2023 Orders Only Department of Family Medicine, [facility], in [address] [phone] Bere Friedman R.N. from Last 3 Months Immunizations Name Administration Dates Next Due Influenza Split Preservative Free ID 11/27/2013 Influenza TIV (IM) 01/20/2016 Influenza, Injectable, Mdck, Preservative Free, Quadrivalent 01/04/2021,01/31/2017 Influenza, Injectable, Quadrivalent 12/18/2018 PCV20 12/05/2021 PPSV23 12/20/2017,04/20/2012 RSV: respiratory syncytial v irus (ABRYSVO) bivalent vaccine 11/08/2022 SARS-COV-2 (COVID-19) - PFIZ ER (Discontinued)(12 years or older) 12/09/2020,05/11/2020,04/29/2020 Tdap 06/19/2018 influenza vaccine quad (FLUZ ONE/FLUARIX) (6 months and older)(PF) 11/08/2022,11/14/2021 Social History Tobacco Use Types Packs/Day Years Used Date Smoking Tobacco: Never Passive Smoke Exposure: Never Smokeless Tobacco: Never Tobacco Cessation:Counseling Given: Not Answered Alcohol Use Standard Drinks/Week Comments Yes 0 (1 standard drink = 0.6 oz pur e alcohol) rare [facility] Utilities Answer Date Recorded In the past 12 months has [facility] [facility] MXP4, oil, or Edyn threatened to shut off services in your [...] 12/14/2021 How often do you attend chur or adventism services? Patient declined 12/14/2021 Do you belong to any clubs o r organizations such as zoroastrian groups, unions, fraternal or athletic groups, or [...] Answer Date Recorded PHQ-2 Score 0 06/08/2023 [facility] ional [facility] - Occupational Stress [...] your living situation today? I have a [facility] place to live 06/06/2023 Education Answer [...] Orientation Straight 06/06/2023 3: 51 PM CDT Last Filed Vital Signs Vital Sign Reading Time Taken Comments Blood Pressure 125/80 06/08/2023 10:11 AM CDT Pulse 75 06/08/2023 10:11 AM CDT Temperature 36.9 ??C (98.4 ??F) 06/08/2023 10:09 AM C DT Respiratory Rate 18 06/08/2023 10:09 AM CDT Oxygen Saturation 99% 06/27/2022 10:23 AM CDT Inhaled Oxygen Concentration - - Weight 88.5 kg (195 lb) 10/05/2023 7:59 AM CDT Height 163 cm (5' 4.17) 06/08/2023 10:09 AM CDT Body Mass Index 33.29 06/08/2023 10:09 AM CDT Plan of Treatment Upcoming Encounters Date Type Department Care Team (Late st Contact Info) Description 01/07/2024 10:20 AM CODING CLERKS SUPERVISOR Appointment Department of Laboratory Medicine in [address] [phone] Silva Silva APRN, C.N.P., D.N.P. [address] [place] [phone] 01/07/2024 3:00 PM CODING CLERKS SUPERVISOR Telemedicine Department of Internal Medicine in [place], [place] [address] [place] [phone] Silva Silva APRN, C.N.P., D.N.P. [address] [place] [phone] Health Maintenance Due Date Last Done Comments CT Colonography 1960 Cologuard 1960 FIT 1960 Hepatitis C Screening 1960 Zoster Vaccines (1 of 2) 2010 Visit: Medicare Annual Wellness 12/06/2022 2 COVID-19 Vaccine (2023- 5 season) 2023 11/14/2021, 12/09/2020, 05/11/2020, Additional history exists Influenza Vaccine (#1) 2023 3, 11/14/2021, 01/04/2021, Additional history exists Mammogram 04/04/2024 04/04/2023, 11/19, 08/26/2019, Additional history exists Fasting Glucose for Diabetes Screening 06/07/2024 06/08/2023, 07/26/2022, 07/26/2022, Additional history exists Office Visit for Blood Press ure Check / Re-check 06/07/2024 06/08/2023 Cervical Cancer Screening 06/30/20272022, 06/29/2022, 11/26/2018 (Performed elsewhere) Lipid (Cholesterol) Screening 07/27/2027 07/26/2022, 09/02/2021 DTaP,Tdap,and Td Vaccines (2 - Td or Tdap) 06/19/2028 06/19/2018 Colonoscopy 06/27/2032 06/27/2022, 01/21, 02/18/2011 Colorectal Cancer Screening 06/27/2032 Pneumococcal vaccine (0-64 years) Completed 12/05/2021, 12/20/2017, 04/20/2012 RSV vaccine - (32-3 6 weeks) or 60+ years Completed 11/08/2022 Depression Screening (Annual PHQ-2) Completed 06/08/2023, 06/08/2023 Procedures Procedure Name Priority Date/Time Associated Diagnosis Comments EXTM HOME SARS CORONAVIRUS-2 (COVID-19) MOLECULAR, V Routine 11/12/2023 COMPREHENSIVE METABOLIC PANEL, S/P Routine 06/08/2023 10:57 AM CDT Dizziness BI BREAST SCREENING BILATERAL WITH TOMOSYNTHESIS RAD - Routine (most inpatients and all outpatients) 04/04/2023 12:54 PM CODING CLERKS SUPERVISOR Screening Mammogram Average Risk Patient LIPID PANEL, S Routine 07/26/2022 10:30 AM CDT Bipolar Disorder (HCC) Other Residential Current Drug Therapy Metabolic Disorder Screening Exam HPV WITH GENOTYPING, PCR, THINPREP Routine 06/29/2022 10:55 AM CDT COLONOSCOPY 06/27/2022 11:53 AM CDT from Last 3 Months or Most Recently Relevant to Health Maintenance Results * (ABNORMAL) EXT Home SARS Coronavirus-2 (COVID-19) Molecular (11/12/2023) EXT Home SARS-CoV-2 Molecular Presumptive Positive(A) Presumptive Negative OTHER (SPECIFY IN FAMILY SERVICE ASSISTANT) Swab 11/12/2023 Historical Provider LAB MICROBIOLOGY - G ENERAL ORDERABLES OTHER (SPECIFY IN FAMILY SERVICE ASSISTANT) N/A * (ABNORMAL) Comprehensive Metabolic Panel (06/08/2023 10:57 AM CDT) Potassium, P 4.8 3.6 - 5.2 mmol/L 06/08/2023 11:26 AM CDT [facility] Sodium, P 144 135 - 145 mmol/L 06/08/2023 11:26 AM CDT [facility] Chloride, P 107 98 - 107 mmol/L 06/08/2023 11:26 AM CDT [facility] Bicarbonate, P 24 22 - 29 mmol/L 06/08/2023 11:26 AM CDT [facility] Anion Gap, P 13 7 - 15 06/08/2023 11:26 AM CDT [facility] BUN (Blood Urea Nitrogen), P 21 6 - 21 mg/dL 06/08/2023 11:26 AM CDT [facility] Creatinine 0.82 0.59 - 1.04 mg/dL 06/08/2023 11:26 AM CDT [facility] Estimated GFR (eGFR) 81 >=60 mL/min/BS A 06/08/2023 11:26 AM CDT [facility] Comment: Estimated GFR calculated using the 2020 CKD_EPI creatinine equation. Calcium, Total, P 9.4 8.8 - 10.2 mg/dL 06/08/2023 11:26 AM CDT [facility] Glucose, P 105 70 - 140 mg/dL 06/08/2023 11:26 AM CDT [facility] Protein, Total, P 7.4 6.3 - 7.9 g/dL 06/08/2023 11:26 AM CDT [facility] Albumin, P 4.5 3.5 - 5.0 g/dL 06/08/2023 11:26 AM CDT [facility] Aspartate Aminotransferase (AST), P 31 8 - 43 U/L 06/08/2023 11:26 AM CDT [facility] Alkaline Phosphatase, P 113(H) 35 - 104 U/L 06/08/2023 11:26 AM CDT [facility] Alanine Aminotransferase (ALT), P 30 7 - 45 U/L 06/08/2023 11:26 AM CDT [facility] Bilirubin, Total, P 0.5 0.0 - 1.2 mg/dL 06/08/2023 11:26 AM CDT [facility] Blood (Blood, Venous) 06/08/2023 10:57 AM CDT 06/08/2023 11:02 AM CDT Silva Silva APRN, C.N.P., D.N.P. LAB BLOOD ADD-ON [facility] [address] [place] [address], [facility] RDWG [facility] [place] [address] [place] [phone] * BI Breast Screening Bilateral with Tomosynthesis (04/04/2023 12:54 PM CODING CLERKS SUPERVISOR) Anatomical Region Laterality Modality Breast, Breast Imaging RST L OS, Breast Imaging ARZ LOS, Breast Imaging FLA LOS Bilateral Mammography Impressions 04/05/2023 11:17 AM CODING CLERKS SUPERVISOR Negative. RECOMMENDATION: ??Annual Screening Mammogram ASSESSMENT: ??BI-RADS: 1: Negative. Narrative 04/05/2023 11:17 AM CODING CLERKS SUPERVISOR EXAM: ??BI BREAST SCREENING BILATERAL WITH TOMOSYNTHESIS Current study was evaluated with a Computer Aided Detection (CAD) system. INDICATION: ??Screening mammogram. COMPARISON: ??Prior exam(s) were available and reviewed for comparison. DENSITY: ??b. There are scattered areas of fibroglandular density. FINDINGS: ??No mammographic findings of malignancy. Procedure Note Elio Yee M.D. - 04/05/2023 EXAM: BI BREAST SCREENING BILATERAL WITH TOMOSYNTHESIS Current study was evaluated with a Computer Aided Detection (CAD) system. INDICATION: Screening mammogram. COMPARISON: Prior exam(s) were available and reviewed for comparison. DENSITY: b. There are scattered areas of fibroglandular density. FINDINGS: No mammographic findings of malignancy. IMPRESSION: Negative. RECOMMENDATION: Annual Screening Mammogram ASSESSMENT: BI-RADS: 1: Negative. Silva Silva APRN C.N.PZee, D.N.P. [facility] PROCEDURES * (ABNORMAL) Lipid Panel (07/26/2022 10:30 AM CDT) Triglycerides 150(H) mg/dL 07/26/2022 11:00 AM T [facility] Comment: ----REFERENCE VALUE---- Normal: <150 mg/dL Borderline High: 150-199 mg/dL High: 200-499 mg/dL Very High: > or =500 mg/dL Cholesterol, Total 165 mg/dL 2022 11:00 AM T [facility] Comment: ----REFERENCE VALUE---- Desirable: < 200 mg/dL Borderline High: 200 - 239 mg/dL High: > or = 240 mg/dL Cholesterol, LDL, Calculated 89 mg/dL 07/26/2022 11:00 AM T [facility] Comment: ----REFERENCE VALUE---- Desirable: <100 mg/dL Above Desirable: 100-129 mg/dL Borderline High: 130-159 mg/dL High: 160-189 mg/dL Very High: >=190 mg/dL ----ADDITIONAL INFORMATION---- LDL cholesterol calculated using the Aguilar/NIH equation. Cholesterol, HDL 50 >=50 mg/dL 07/27/19 11:00 AM CDT [facility] Cholesterol, Non-HDL, Calculated 115 mg/dL 07/26/2022 11:00 AM T [facility] Comment: ----REFERENCE VALUE---- Desirable: <130 mg/dL Above Desirable: 130-159 mg/dL Borderline High: 160-189 mg/dL High: 190-219 mg/dL Very High: > or =220 mg/dL Fasting (8 HR or more) Yes 07/26/2022 10:31 AM CDT CNFL Blood (Blood, Venous) 07/26/2022 10:30 AM CDT 07/26/2022 10:31 AM CDT Kelli Manuel PMHNP- LAB BLOOD ADD-O N [facility] [address] [place] [address], [facility] CNFL [facility] in [address] [phone] * HPV with Genotyping, PCR, ThinPrep (06/29/2022 10:55 AM CDT) HPV with Genotyping, ThinPrep, PCR Negative Negative 06/30/2022 3:44 PM CDT E[facility] Comment: Negative for high risk HPV by nucleic acid amplification. ??The following high risk HPV types were not detected: 16, 18, 31, 33, 35, 39, 45, 51, 52, 56, 58, 59, 66, and 68 This result does not rule out HPV in the patient, as the sensitivity of the test depends on the timing of the specimen collection and the quality of the specimen. Result should be correlated with patient's history, clinical presentation, and OFFICE MACHINE PUNCH OPERATOR cytology report. 06/29/2022 10:5 5 AM CDT 06/30/2022 12:03 PM CDT Clementina Lino APRN, C.N.P. LAB MICROBIOLO GY - GENERAL ORDERABLES Performing Organization Address City/[facility]/ZIP Co de Phone Number [facility] [address] [place] [id number], [facility] ECLR [address] [place] [phone] * COLONOSCOPY (06/27/2022 11:53 AM CDT) Narrative Procedure Note Miguel Ángel Lay M.D. - 06/27/2022 11:53 AM CDT [facility] Patient Name: Modesta Holley Procedure Date: 06/27/2022 11:53 AM Date of : 1960 Age: 61 Gender: Female Procedure: Colonoscopy Providers: Silva Muñiz (Ordering Provider) Referring Provider: Silva Silva Pre-op Diagnoses: Screening for colorectal malignant neoplasm Post-op Diagnoses: - One 1 mm polyp in the ascending colon, removed with a cold biopsy forceps. Resected and retrieved. - The examination was otherwise normal. Recommendation: - Repeat colonoscopy in 10 years for screening purposes. Findings: A 1 mm polyp was found in the ascending colon. The polyp was sessile. The polyp was removed with a cold biopsy forceps. Resection and retrieval were complete. The exam was otherwise without abnormality. Medicines: Monitored Anesthesia Care Estimated Blood Loss: Estimated blood loss: none. Complications: No immediate complications. Estimated blood loss: None. Procedure Details: The patient was seen, evaluated, and history reviewed. Airway and heart and lung exams were performed and were satisfactory for plannedsedation care. The risks, benefits and alternatives for the procedure and sedation were discussed andinformed consent was obtained. A procedural pause was conducted in the presence of assisting personnelto verify the correct patient identity and procedureto be performed. Throughout the procedure, the patient's blood pressure, pulse, and oxygen saturations were monitored continuously. The Colonoscope was introduced under directvision through the anus and advanced to the terminalileum. The colonoscopy was somewhat difficult due to significant looping. Successful completion of the procedure was aided by applying abdominalpressure. The patient tolerated the procedure well. The quality of the bowel preparation was evaluatedusing the BBPS ([place] Bowel Preparation Scale) with scores of: Right Colon = 3, Transverse Colon = 3and Left Colon = 3 (entire mucosa seen well with no residual staining, small fragments of stool or opaque liquid). The total BBPS score equals 9. Sedation: Anesthesia was administered by an anesthesia professional. Thefollowing parameters were monitored: oxygen saturation, heart rate, blood pressure, respiratory rate, EKG, adequacy of pulmonary ventilation,and response to care. Miguel Ángel Lay, 06/27/2022 11:55:11 AM This report has been signed electronically. Number of Addenda: 0 Note Initiated On: 06/27/2022 11:53 AM Silva Silva APRN C.N.Ralph., D.N.P. GI PROCEDURE ORDERABLES from Last 3 Months or Most Recently Relevant to Health Maintenance Additional Health Concerns Infection Onset Date Last Indicated COVID19 11/12/2023 11/12/2023 Care Teams Pack Out Operator Relationship Specialty Start Date End Date Silva Silva APRN, C.N.P., D.N.P. [address] [place] [phone] PCP - General Internal Medicine 08/26/21
--- OUTSIDE RECORDS SUMMARY | 2023-11-14 17:41 | XMS_ITS | Encounter Summary ---
Author Organization [facility] Address [address] [place] [address] Care Team Providers Care Registrar Museum Name Role Phone Silva Silva APRN, C.N.P., D.N.P. Primary Ca re Provider Reason for Visit * Reason Onset Date Comments Med Question 10/29/2023 Scripts for insu ranace Encounter Details Date Type Department Care Team (Latest Contact Info) Description 10/29/2023 Clinical Communication Department of Internal Medicine in [place], [place] [address] [place] [phone] Silva Silva APRN, C.N.P., D.N.P. [address] [place] [phone] Med Question (Scripts for insuranace) Social History Tobacco Use Types Packs/Day Years Used Date Smoking Tobacco: Never Passive Smoke Exposure: Never Smokeless Tobacco: Never Alcohol Use Standard Drinks/Week Comments Yes 0 (1 standard drink = 0.6 oz pur e alcohol) rare [facility] Utilities Answer Date Recorded In the past 12 months has th e electric, gas, oil, or water company [...] How often do you attend chur or episcopal services? Patient declined 12/14/2021 Do you belong to any clubs o r organizations such as sikh groups, unions, fraternal or athletic groups, or [...] Answer Date Recorded PHQ-2 Score 0 06/08/2023 [facility] of Occupat ional Health - Occupational Stress [...] your living situation today? I have a [facility] place to live 06/06/2023 Education Answer [...] PM CDT documented as of this encounter Plan of Treatment Upcoming Encounters Date Type Department Care Team (Late st Contact Info) Description 01/07/2024 10:20 AM GREY ROLL WORKER Appointment Department of Laboratory Medicine in [address] [phone] Silva Silva APRN, C.N.P., D.N.P. [address] [place] [phone] 01/07/2024 3:00 PM [facility] Telemedicine Department of Internal Medicine in [place], [place] [address] [place] [phone] Silva Silva APRN, C.N.Ralph., D.N.P. [address] [place] [phone] documented as of this encounter Visit Diagnoses Not on filedocumented in this encounter Care Teams Registrar Museum Relationship Specialty Start Date End Date Silva Silva APRN, C.N.Ralph., D.N.P. [address] [place] [phone] PCP - General Internal Medicine 08/26/21 documented as of this encounter
--- OUTSIDE RECORDS SUMMARY | 2023-11-14 17:41 | XMS_ITS ---
Author Organization [facility] Address [address] [place] [address] Care Team Providers Care Lamp Inspector Name Role Phone Unavailable Unavailable Unavailable Surgery Details Not on file Complications Check Surgery Details section. Procedure Estimated Blood Loss Check Surgery Details section. Procedure Findings Check Surgery Details section. Procedure Specimens Taken Check Surgery Details section.
--- OUTSIDE RECORDS SUMMARY | 2023-11-14 17:41 | XMS_ITS | Referral Summary ---
Author Organization [facility] Address [address] [place] [address] Care Team Providers Care Dietetics Director Name Role Phone Silva Silva APRN C.N.P., D.N.P. Primary Ca re Provider Source Comments Patient records contain information from all sites at [facility]. For routine questions regarding patient records, call [phone] during business hours, M-F 8:00 AM - 5:00 PM Central Time. Record requests for emergency care only can be directed to [phone] at any time.[facility] Encounters Date Type Department Care Team Description 11/14/2023 Nurse Triage Department of Internal Medicine in [address] [phone] Vijaya Preciado, R.N. Cough; Dizziness; Fatigue 10/29/2023 Clinical Communication Department of Internal Medicine in [address] [phone] Silva Silva APRN, C.N.P., D.N.P. Med Question (Scripts for insuranace) 10/05/2023 8:00 AM CDT Telemedicine Department of Internal Medicine in [address] [phone] Silva Silva APRN C.N.P., D.N.P. Obesity Body Mass Index 30-39.9 Adult (Primary Dx); Surgery Bariatric Status Post; Depression Major Recurrent Partial Remission (HCC); Impaired Fasting Glucose; Deficiency Vitamin D; Hypercholesterolemi a Discharge Disposition: Home or Self Care 09/20/2023 Refill Department of Internal Medicine in [address] [phone] Silva Silva APRN C.N.P., D.N.P. Med Refill 09/06/2023 Refill Department of Internal Medicine in [address] [phone] Silva Silva APRN, C.N.P., D.N.P. Med Refill 09/03/2023 Clinical Communication Department of Internal Medicine in [address] [phone] Silva Silva APRN C.N.P., D.N.P. PandaDoc Form ([facility] Verification of OTC Medical Expenses ) 08/24/2023 10:20 AM CDT Telemedicine Department of Internal Medicine in [address] [phone] Silva Silva APRN C.N.P., D.N.P. Obesity Body Mass Index 30-39.9 Adult (Primary Dx); Surgery Bariatric Status Post; Candidiasis Intertrigo; Gastroesophageal Reflux Disease; Asthma Moderate Persistent (HCC) Discharge Disposition: Home or Self Care 08/22/2023 Orders Only Department of Family Medicine, [facility], in [address] [phone] Bere Friedman R.N. from Last 3 Months Allergies Active Allergy Reactions Criticality Noted Date [...] fluticasone propionate (FLONASE) 50 mcg/actuation nasal sprayIndications:D izziness Administer 1 spray into each nostril 2 [...] 08/02/2015 Overview (06/08/2023): (Problem was migrated from [employer] on 03/21/2017) (Problem was migrated from [employer] on 03/21/2017) Sleep Apnea 02/18/2009 Overview (06/08/2023): (Problem was migrated from [employer] on 03/21/2017) (Problem was migrated from [employer] on 03/21/2017) Resolved Problems Problem Noted Date Diagnosed Date Resolved Date Nausea And Vomiting 03/31/2022 08/24/19 24 Overview (03/31/2022): Added automatically from request for surgery [id number] Pain Epigastric 03/31/2022 08/24/2023 Overview (03/31/2022): Added automatically from request for surgery [id number] Gastroparesis 12/05/2021 03/31/2022 Depressive Disorder 12/05/2021 12/06/19 22 Gallstone 12/05/2021 03/31/2022 Screening Mammogram Average Risk Patient 09/02/2021 09/02/2021 Screening Cancer Colon 09/02/202109/04 Overview (09/02/2021): Added automatically from request for surgery [id number] Bypass Gastric Pema En Y Status Post 08/08/2016 12/05/2021 Asthma 03/28/2012 09/04/2022 Overview (09/04/2022): (Problem was migrated from [employer] on 03/21/2017) Hypertension Essential Primary 05/02/2011 09/04/2022 Overview (09/04/2022): (Problem was migrated from [employer] on 03/21/2017) Diabetes Mellitus Type 2 Without Complication 02/19/20 11 06/08/2023 Overview (06/08/2023): Removal Reason: resolved (Problem was migrated from [employer] on 03/21/2017) (Problem was migrated from [employer] on 03/21/2017) Removal Reason: resolved (Problem was migrated from [employer] on 03/21/2017) Immunizations Name Administration Dates Next Due Influenza [...] = 0.6 oz pur e alcohol) rare [facility] Utilities Answer Date Recorded In the past 12 months has th e [employer] or [employer] threatened to shut off services in your [...] How often do you attend chur or spiritism services? Patient declined 12/14/2021 Do you belong to any clubs o r organizations such as gnosticism groups, unions, fraternal or athletic groups, or [...] Answer Date Recorded PHQ-2 Score 0 06/08/2023 [facility] [place] of Occupat ional Health - Occupational Stress [...] your living situation today? I have a [facility] place to live 06/06/2023 Education Answer [...] st Contact Info) Description 01/07/2024 10:20 AM SOLID WASTE COLLECTION WORKER Appointment Department of Laboratory Medicine in [address] [phone] Silva Silva APRN, C.N.P., D.N.P. [address] [place] [phone] 01/07/2024 3:00 PM SOLID WASTE COLLECTION WORKER Telemedicine Department of Internal Medicine in [address] [phone] Silva Silva APRN, C.N.P., D.N.P. [address] [place] [phone] Procedures Procedure Name Priority Date/Time Associated Diagnosis Comments EXTM HOME SARS CORONAVIRUS-2 (COVID-19) MOLECULAR, V Routine 11/12/2023 COMPREHENSIVE METABOLIC PANEL, S/P Routine 06/08/2023 10:57 AM CDT Dizziness BI BREAST SCREENING BILATERAL WITH TOMOSYNTHESIS RAD - Routine (most inpatients and all outpatients) 04/04/2023 12:54 PM SOLID WASTE COLLECTION WORKER Screening Mammogram Average Risk Patient LIPID PANEL, S Routine 07/26/2022 10:30 AM CDT Bipolar Disorder (HCC) Other Armed Security Guard Current Drug Therapy Metabolic Disorder Screening Exam HPV WITH GENOTYPING, PCR, THINPREP Routine 06/29/2022 10:55 AM CDT COLONOSCOPY 06/27/2022 11:53 AM CDT from Last 3 Months or Most Recently Relevant to Health Maintenance Results * (ABNORMAL) EXT Home SARS Coronavirus-2 (COVID-19) Molecular (11/12/2023) EXT Home SARS-CoV-2 Molecular Presumptive Positive(A) Presumptive Negative OTHER (SPECIFY IN CONTENT DEVELOPMENT SPECIALIST) Swab 11/12/2023 Historical Provider LAB MICROBIOLOGY - G ENERAL ORDERABLES OTHER (SPECIFY IN CONTENT DEVELOPMENT SPECIALIST) N/A * (ABNORMAL) Comprehensive Metabolic Panel (06/08/2023 [...] Silva APRN, C.N.P., D.N.P. LAB BLOOD ADD-ON [facility] [address] [place] [address], [facility] RDWG [facility] in [place] [address] [place] [phone] * BI Breast Screening Bilateral with Tomosynthesis (04/04/2023 12:54 PM SOLID WASTE COLLECTION WORKER) Anatomical Region Laterality Modality Breast, Breast Imaging RST L OS, Breast Imaging ARZ LOS, Breast Imaging FLA LOS Bilateral Mammography Impressions 04/05/2023 11:17 AM SOLID WASTE COLLECTION WORKER Negative. RECOMMENDATION: ??Annual Screening Mammogram ASSESSMENT: ??BI-RADS: 1: Negative. Narrative 04/05/2023 11:17 AM SOLID WASTE COLLECTION WORKER EXAM: ??BI BREAST SCREENING BILATERAL WITH TOMOSYNTHESIS [...] Mammogram ASSESSMENT: BI-RADS: 1: Negative. Silva Silva APRN, C.N.P., D.N.P. IMG BI PROCEDURES * (ABNORMAL) Lipid Panel (07/26/2022 10:30 AM CDT) Triglycerides 150(H) mg/dL 07/26/2022 11:00 AM [facility] Comment: ----REFERENCE VALUE---- Normal: <150 mg/dL Borderline High: 150-199 mg/dL High: 200-499 mg/dL Very High: > or =500 mg/dL Cholesterol, Total 165 mg/dL 2022 11:00 AM [facility] Comment: ----REFERENCE VALUE---- Desirable: < 200 mg/dL Borderline High: 200 - 239 mg/dL High: > or = 240 mg/dL Cholesterol, LDL, Calculated 89 mg/dL 07/26/2022 11:00 AM [facility] Comment: ----REFERENCE VALUE---- Desirable: <100 mg/dL Above Desirable: 100-129 mg/dL Borderline High: 130-159 mg/dL High: 160-189 mg/dL Very High: >=190 mg/dL ----ADDITIONAL INFORMATION---- LDL cholesterol calculated using the Aguilar/NIH equation. Cholesterol, HDL 50 >=50 mg/dL 07/27/19 11:00 AM CDT [facility] Cholesterol, Non-HDL, Calculated 115 mg/dL 07/26/2022 11:00 AM CDT [facility] Comment: ----REFERENCE VALUE---- Desirable: <130 mg/dL Above Desirable: 130-159 mg/dL Borderline High: 160-189 mg/dL High: 190-219 mg/dL Very High: > or =220 mg/dL Fasting (8 HR or more) Yes 07/26/2022 10:31 AM CDT [facility] Blood (Blood, Venous) 07/26/2022 10:30 AM CDT 07/26/2022 10:31 AM CDT Kelli Manuel PMHNP- LAB BLOOD ADD-O N Performing Organization Address City/[facility]/ZIP Co de Phone Number [facility] [address] [place] [address] [place] [address] * HPV with Genotyping, PCR, ThinPrep (06/29/2022 [...] correlated with patient's history, clinical presentation, and RIVET THROWER cytology report. 06/29/2022 10:5 5 AM CDT 06/30/2022 12:03 PM CDT Clementina Lino APRN C.N.P. LAB MICROBIOLO GY - GENERAL ORDERABLES [facility][NOTE 3] [facility] [address] [place] [address], [facility] ECLR [address] [facility] [address] [place] [phone] * COLONOSCOPY (06/27/2022 11:53 AM CDT) Narrative Procedure Note Miguel Ángel Lay M.D. - 06/27/2022 11:53 AM CDT [facility] [place] [facility] Patient Name: Modesta Holley Procedure Date: [...] the bowel preparation was evaluatedusing the BBPS ([place] Bowel Preparation Scale) with scores of: Right [...] 0 Note Initiated On: 06/27/2022 11:53 AM Amadeo Ashley APRN.N.P., D.N.P. GI PROCEDURE ORDERABLES from Last 3 Months or Most Recently Relevant to Health Maintenance Additional Health Concerns Infection Onset Date Last Indicated COVID19 11/12/2023 11/12/2023 Care Teams Dietetics Director Relationship Specialty Start Date End Date Silva Silva APRN, C.N.P., D.N.P. [address] [place] [phone] PCP - General Internal Medicine 08/26/21
--- OUTSIDE RECORDS SUMMARY | 2023-11-14 17:41 | XMS_ITS | Encounter Summary ---
Author Organization [facility] Address [address] [place] [address] Care Team Providers Care Shuttlecock Feather Trimmer Name Role Phone Silva Silva APRN, C.N.P., D.N.P. Primary Ca re Provider Reason for Visit * Reason Comments Med Refill Encounter Details Date Type Department Care Team (Late st Contact Info) Description 09/20/2023 Refill Department of Internal Medicine in [place], [place] [address] [place] [phone] Silva Silva APRN, C.N.P., D.N.P. [address] [place] [phone] Med Refill Social History Tobacco Use Types Packs/Day Years Used Date Smoking Tobacco: Never Passive Smoke Exposure: Never Smokeless Tobacco: Never Alcohol Use Standard Drinks/Week Comments Yes 0 (1 standard drink = 0.6 oz pur e alcohol) rare [facility] Utilities Answer Date Recorded In the past 12 months has e [employer], gas, oil, or water company threatened to [...] week 12/14/2021 How often do you attend [facility] or jew services? Patient declined 12/14/2021 Do you belong to any clubs o r organizations such as congregation groups, unions, fraternal or athletic groups, or [...] Answer Date Recorded PHQ-2 Score 0 06/08/2023 [employer] [place] of Occupat ional Health - Occupational Stress [...] encounter Miscellaneous Notes * Telephone Encounter - Ramon Bradford M.D. - 09/21/2023 7:51 AM CDT RX approved documented in this encounter Plan of Treatment Upcoming Encounters Date Type Department Care Team (Late Contact Info) Description 01/07/2024 10:20 AM CHIROPRACTOR SOLE PRACTITIONER Appointment Department of Laboratory Medicine in [address] [place] [phone] Silva Silva APRN, C.N.P., D.N.P. [address] [place] [phone] 01/07/2024 3:00 PM CHIROPRACTOR SOLE PRACTITIONER Telemedicine Department of Internal Medicine in [address] [phone] Silva Silva APRN, C.N.P., D.N.P. [address] [place] [phone] documented as of this encounter Visit Diagnoses Not on filedocumented in this encounter Care Teams Shuttlecock Feather Trimmer Relationship Specialty Start Date End Date Silva Silva APRN, C.N.P., D.N.P. [address] [place] [phone] PCP - General Internal Medicine 08/26/21 documented as of this encounter
--- OUTSIDE RECORDS SUMMARY | 2023-11-14 17:41 | XMS_ITS | Encounter Summary ---
Author Organization [facility] Address [address] [place] [address] Care Team Providers Care Cyanide Pot Tender Name Role Phone Silva Silva APRN, C.N.P., D.N.P. Primary Ca re Provider Reason for Visit * Reason Comments Med Refill Encounter Details Date Type Department Care Team (Late st Contact Info) Description 09/06/2023 Refill Department of Internal Medicine in [place], [place] [address] [place] [phone] Silva Silva APRN, C.N.P., D.N.P. [address] [place] [phone] Med Refill Social History Tobacco Use Types Packs/Day Years Used Date Smoking Tobacco: Never Passive Smoke Exposure: Never Smokeless Tobacco: Never Alcohol Use Standard Drinks/Week Comments Yes 0 (1 standard drink = 0.6 oz pur e alcohol) rare [facility] Utilities Answer Date Recorded In the past 12 months has e [employer], gas, oil, or water company threatened to [...] week 12/14/2021 How often do you attend [facility] or caodaism services? Patient declined 12/14/2021 Do you belong to any clubs o r organizations such as latter day groups, unions, fraternal or athletic groups, or [...] Answer Date Recorded PHQ-2 Score 0 06/08/2023 [facility] [place] of Occupat ional Health - Occupational Stress [...] your living situation today? I have a [facility] place to live 06/06/2023 Education Answer [...] st Contact Info) Description 01/07/2024 10:20 AM COLLAR TAILOR Appointment Department of Laboratory Medicine in [address] [phone] Silva Silva APRN, C.N.P., D.N.P. [address] [place] [phone] 01/07/2024 3:00 PM [facility] Department of Internal Medicine in [place], [place] [address] [place] [phone] Silva Silva APRN, C.N.P., D.N.P. [address] [place] [phone] documented as of this encounter Visit Diagnoses Diagnosis Herpes Genitalis documented in this encounter Care Teams Cyanide Pot Tender Relationship Specialty Start Date End Date Silva Silva APRN, C.N.P., D.N.P. [address] [place] [phone] PCP - General Internal Medicine 08/26/21 documented as of this encounter
--- OUTSIDE RECORDS SUMMARY | 2023-11-14 17:41 | XMS_ITS ---
Author Organization Unknown Patient Care team information Name Category Status Period Participants - - Proposed period not known -
--- OUTSIDE RECORDS SUMMARY | 2023-11-14 17:41 | XMS_ITS ---
Author Organization [facility] Address [address] [place] [address] Care Team Providers Care Shank Inspector Name Role Phone Silva Silva APRN, C.N.P., D.N.P. Primary Ca re Provider Bariatrics Program Status:Enrolled (Active) Start date:09/20/2022 Enrollment date:10/09/2022 Current support & services provided:Pre-Op Related social determinants of health:Food Insecurity, Transportation Needs Overview S/p gastric bypass, TORe Continued Care and Services Coordination
--- OUTSIDE RECORDS SUMMARY | 2023-11-14 17:41 | XMS_ITS | Encounter Summary ---
Author Organization [facility] Address [address] [place] [address] Care Team Providers Care Bench Tool Maker Name Role Phone Silva Silva APRN, C.N.P., D.N.P. Primary Ca re Provider Reason for Visit * Reason Onset Date Comments PandaDoc Form 09/03/2023 [facility] Verification of OTC Medical Expenses Encounter Details Date Type Department Care Team (Latest Contact Info) Description 09/03/2023 Clinical Communication Department of Internal Medicine in [place], [place] [address] [place] [phone] Silva Silva APRN, C.N.P., D.N.P. [address] [place] [phone] PandaDoc Form ([facility] Verification of OTC Medical Expenses ) Social History Tobacco Use Types Packs/Day Years Used Date Smoking Tobacco: Never Passive Smoke Exposure: Never Smokeless Tobacco: Never Alcohol Use Standard Drinks/Week Comments Yes 0 (1 standard drink = 0.6 oz pur e alcohol) rare [facility] Utilities Answer Date Recorded In the past [...] week 12/14/2021 How often do you attend [facility] or restorationist services? Patient declined 12/14/2021 Do you belong to any clubs o r organizations such as hindu groups, unions, fraternal or athletic groups, or [...] Answer Date Recorded PHQ-2 Score 0 06/08/2023 [facility] of Occupat ional Health - Occupational [...] living situation today? I have a [facility] place to live 06/06/2023 Education Answer Date [...] encounter Miscellaneous Notes * Telephone Encounter - Kiana Barraza - 09/03/2023 1:31 PM CDT Form faxed back to facility. Copy sent to [facility] for scanning. * Telephone Encounter - Kiana Barraza - 09/03/2023 9:37 AM CDT Form was routed to Silva Silva DNP, for electronic review/signature. POWER PLANT ASSISTANT: Sheela Liu PHONE NUMBER: [phone] INFO REQUESTED: Verification of OTC Medical Expense INSTRUCTIONS: Fax information to [phone] documented in this encounter Plan of Treatment Upcoming Encounters Date Type Department Care Team (Late st Contact Info) Description 01/07/2024 10:20 AM COMMERCIAL FRONT LOAD OPERATOR Appointment Department of Laboratory Medicine in [address] [phone] Silva Silva APRN C.N.P., D.N.P. [address] [place] [phone] 01/07/2024 3:00 PM COMMERCIAL FRONT LOAD OPERATOR Telemedicine Department of Internal Medicine in [address] [phone] Silva Silva APRN C.N.P., D.N.P. [address] [place] [phone] documented as of this encounter Visit Diagnoses Not on filedocumented in this encounter Care Teams Bench Tool Maker Relationship Specialty Start Date End Date Silva Silva APRN, C.N.P., D.N.P. [address] [place] [phone] PCP - General Internal Medicine 08/26/21 documented as of this encounter
--- OUTSIDE RECORDS SUMMARY | 2023-11-14 17:41 | XMS_ITS | Encounter Summary ---
Author Organization [facility] Address [address] [place] [address] Care Team Providers Care Pacs Specialist Name Role Phone Silva Silva APRN C.N.PZee, D.N.P. Primary Ca re Provider Reason for Referral * Outpatient (Routine) - Authorized Specialty Diagnoses / Procedures Referred By Contac t Referred To Contact Silva Silva APRN, C.N.P., D.N.P. [address] [place] [phone] [facility] Region Referral ID Status Reason Start Date Expiration Date V isits Requested Visits Authorized [id number] Authorized 08/22/2023 02/20/2025 1 1 Scheduling Instructions AWMari cruz/ RN after provider visit Encounter Details Date Type Department Care Team (Late st Contact Info) Description 08/22/2023 Orders Only Department of Family Medicine, [facility], in [place], [place] [address] [place] [phone] Bere Friedman R.N. [address] [place] [phone] Social History Tobacco Use Types Packs/Day Years Used Date Smoking Tobacco: Never Smokeless Tobacco: Never Alcohol Use Standard Drinks/Week Comments Yes 0 (1 standard drink = 0.6 oz pur e alcohol) rare [facility] Utilities Answer Date Recorded In [...] How often do you attend chur or amish services? Patient declined 12/14/2021 Do you belong to any clubs o r organizations such as latter-day groups, unions, fraternal or athletic groups, or [...] Answer Date Recorded PHQ-2 Score 0 06/08/2023 [facility]ational Stress Questionnaire Answer Date [...] your living situation today? I have a [facility] place to live 06/06/2023 Education Answer [...] st Contact Info) Description 01/07/2024 10:20 AM RN CASE MGR Appointment Department of Laboratory Medicine in [address] [phone] Silva Silva APRN, C.N.P., D.N.P. [address] [place] [phone] 01/07/2024 3:00 PM RN CASE MGR Telemedicine Department of Internal Medicine in [address] [phone] Silva Silva APRN, C.N.P., D.N.P. [address] [place] [phone] Scheduled Referrals Name Type Priority Associated Diagnoses Orde r Schedule Primary Care nurse visit (clinic) - [facility] Region; Medicare Annual Wellness Outpatient Referral Routine Expected: 08/24/2023 (Approximate), Expires: 11/21/2024 documented as of this encounter Visit Diagnoses Not on filedocumented in this encounter Care Teams Pacs Specialist Relationship Specialty Start Date End Date Silva Silva APRN, C.N.P., D.N.P. [address] [place] [phone] PCP - General Internal Medicine 08/26/21 documented as of this encounter
== END 2023-11-14 18:32 | disposition home or self-care (01) ==
LOC: ED 17:39
PROVIDERS: Emergency Provider Emergency Medicine
DX: U07.1 COVID-19 (principal); H66.91 Otitis media, unspecified, right ear; J45.909 Unspecified asthma, uncomplicated
CPT/HCPCS: 71045; 99284